=== PATIENT | male | born 1995 | race Hispanic/Latino ===

== ENCOUNTER 2018-07-16 13:16 | Emergency (ER) | payer MEDICAID, OTHER ==
[2018-07-16 13:31] VITALS: BP 112/77; PULSE 51; RESP 16; TEMP 98.4; O2SAT 100
[2018-07-16 13:33] VITALS: BMI 21.6
--- NOTE | 2018-07-16 13:43 | C.PDOC ---
History Of Present Illness 23 yr old male p/w L sided dental pain x3d. He notes some mild bleeding to left gum along with tooth pain, posterior tooth. He denies any yellow drainage, Neck stiffnes or PISANO. No nausea, vomiting or chest pain. No fever, chills or night sweats. No chest pain or sob. No difficulty swallowing, odynophagia or dysphagia. No other complaints. Time Seen by Provider: 07/16/18 13:34 Chief Complaint (Nursing): Dental Pain History Per: Patient Past Medical History Vital Signs: Last Vital Signs Temp 98.4 F 07/16/18 13:30 Pulse 51 L 07/16/18 13:30 Resp 16 07/16/18 13:30 BP 112/77 07/16/18 13:30 Pulse Ox 100 07/16/18 13:30 - [facility] Procedures APPLICATION OF SPLINT (10/29/14) Family History: States: Unknown Family Hx - Social History Hx Alcohol Use: No Hx Substance Use: No - Immunization History Hx Tetanus Toxoid Vaccination: No Hx Influenza Vaccination: No Hx Pneumococcal Vaccination: No Review Of Systems Constitutional: Negative for: Fever, Chills, Sweats Eyes: Negative for: Pain ENT: Positive for: Mouth Pain. Negative for: Ear Pain, Ear Discharge, Nose Pain Cardiovascular: Negative for: Chest Pain, Palpitations Respiratory: Negative for: Cough Gastrointestinal: Negative for: Nausea Genitourinary: Negative for: Dysuria Musculoskeletal: Negative for: Neck Pain Skin: Negative for: Rash Neurological: Negative for: Weakness Physical Exam - Physical Exam Appears: Well, No Acute Distress Skin: Normal Color, Warm, Dry Head: Atraumatic, Normacephalic Eye(s): bilateral: Normal Inspection, PERRL, EOMI Nose: Normal Oral Mucosa: Moist Tongue: Normal Appearing Lips: Normal Appearing Teeth: Caries (tooth #18) Gingiva: Normal Appearing, No Erythema, No Ulceration Throat: Normal, No Erythema, No Exudate, No Drooling, No Mass, Other (uvula midline) Neck: Normal Cardiovascular: Rhythm Regular Respiratory: Normal Breath Sounds Gastrointestinal/Abdominal: Normal Exam Back: Normal Inspection Extremity: Normal ROM ED Course And Treatment O2 Sat by Pulse Oximetry: 100 Medical Decision Making Medical Decision Makin yr old male w/ dental jimenez at tooth 18. no ANUG. No trismus or dysphagia, odynophagia or change in phonation. No meningeal signs. No felipa-apical abscess. No parotitis. will have pt f/u up w/ [facility] appreciate consult w/ Pharmacy: amoxcillin 500mg TID q8hrs. script written, clear for d/c home. Disposition - Disposition Referrals: [facility] [facility] [Outside] [facility] [Outside] Disposition: HOME/ ROUTINE Disposition Time: 14:00 Condition: GOOD Additional Instructions: GO TO [facility] OR SEE YOUR DENTIST FOR YOU CAVITY. Prescriptions: Amoxicillin 500 mg PO TID 7 Days #21 tablet Instructions: Tooth Decay, Adult (DC) Forms: [employer] (Russian) - Clinical Impression Clinical Impression: Dental caries
== END 2018-07-16 14:33 | disposition home or self-care (01) ==
LOC: C.ER 13:16
DX: K02.9 Dental caries, unspecified (principal)

== ENCOUNTER 2018-08-03 13:02 | Emergency (ER) | payer MEDICAID, OTHER ==
[2018-08-03 13:02] VITALS: BMI 21.6
[2018-08-03] MEDS ORDERED: Penicillin G Benzathine 1.2 Mill Unit/2 ml Syr IM STA (14:05)
--- NOTE | 2018-08-03 14:05 | C.PDOC ---
History Of Present Illness 23 y/o male presents to the ED complaining of a sore throat, ongoing for 2 days. Associated with myalgias and subjective fever. Otherwise he denies any nausea, vomiting, diarrhea, cough, SOB, or other associated symptoms. Time Seen by Provider: 08/03/18 13:58 Chief Complaint (Nursing): ENT Problem History Per: Patient History/Exam Limitations: no limitations Onset/Duration Of Symptoms: Days (x2) Current Symptoms Are (Timing): Still Present Location Of Pain: Throat, Diffuse Myalgias Past Medical History Reviewed: Historical Data, Nursing Documentation, Vital Signs Vital Signs: Last Vital Signs Temp 98.5 F 08/03/18 13:30 Pulse 64 08/03/18 13:30 Resp 16 08/03/18 13:30 BP 118/71 08/03/18 13:30 Pulse Ox 99 08/03/18 13:30 - Medical History PMH: Fractures (Left femur fracture) Other Surgeries: Left knee surgery - [facility] Procedures APPLICATION OF SPLINT (10/29/14) Family History: States: Unknown Family Hx - Social History Hx Tobacco Use: No Hx Alcohol Use: No Hx Substance Use: No - Immunization History Hx Tetanus Toxoid Vaccination: No Hx Influenza Vaccination: No Hx Pneumococcal Vaccination: No Review Of Systems Constitutional: Positive for: Fever, Other (Diffuse myalgias) ENT: Positive for: Throat Pain Cardiovascular: Negative for: Chest Pain Respiratory: Negative for: Cough, Shortness of Breath, Sputum Gastrointestinal: Negative for: Nausea, Vomiting, Diarrhea Skin: Negative for: Rash Neurological: Negative for: Headache, Dizziness Physical Exam - Physical Exam Appears: Non-toxic, No Acute Distress Skin: Normal Color, Warm, Dry Head: Atraumatic, Normacephalic Eye(s): bilateral: Normal Inspection Ear(s): Bilateral: Normal Nose: Normal, No Discharge Oral Mucosa: Moist Throat: Erythema (+ Pharyngitis), Exudate, Other (Mild swelling to bilateral tonsils, uvula midline) Neck: Supple Chest: Symmetrical Respiratory: No Accessory Muscle Use, No Stridor, Other (NARD) Extremity: Bilateral: Atraumatic, Normal Color And Temperature, Normal ROM Pulses: Left Radial: Normal, Right Radial: Normal Neurological/Psych: Oriented x3, Normal Speech ED Course And Treatment O2 Sat by Pulse Oximetry: 99 (RA) Pulse Ox Interpretation: Normal Medical Decision Making Medical Decision Making: Impression: Pharyngitis Patient requesting IM antibiotic. Plan: Toradol 60 mg IM Penicillin G IM injection Disposition Counseled Patient/Family Regarding: Diagnosis, Need For Followup, Rx Given - Disposition Referrals: [facility] [Outside] [facility] [Outside] Disposition: HOME/ ROUTINE Disposition Time: 14:04 Condition: IMPROVED Prescriptions: Acetaminophen [Tylenol Extra Strength] 2 tab PO Q6 #30 tablet Dexamethasone [Decadron] 12 mg PO ONCE #2 tablet Ibuprofen [Motrin] 600 mg PO Q6 #30 tab Instructions: Sore Throat, Adult (DC) Forms: [facility] (Danish), Work Excuse - Clinical Impression Clinical Impression: Pharyngitis - Scribe Statement The provider has reviewed the documentation as recorded by the Scribe (Irene Washburn) Provider Attestation: All medical record entries made by the Scribe were at my direction and personally dictated by me. I have reviewed the chart and agree that the record accurately reflects my personal performance of the history, physical exam, medical decision making, and the department course for this patient. I have also personally directed, reviewed, and agree with the discharge instructions and disposition.
[2018-08-03] MEDS ORDERED: Penicillin G Benzathine 1.2 Mill Unit/2 ml Syr IM ONE (14:28)
[2018-08-03 14:32] VITALS: BP 115/74; PULSE 87; RESP 18; TEMP 98.7
[2018-08-03 14:52] VITALS: O2SAT 99
== END 2018-08-03 15:06 | disposition home or self-care (01) ==
LOC: C.ER 13:02
DX: J02.9 Acute pharyngitis, unspecified (principal)
CPT/HCPCS: 96372; 99283; J0561; J1885